=== PATIENT | male | born 1975 | race African-American/Black ===

== ENCOUNTER 2016-12-27 14:14 | Inpatient (IN) | payer OTHER ==
[~2016-12-27] VITALS: Ht 152.4 cm; Wt 121.2 kg
--- NOTE | ~2016-12-27 | DS ---
Discharge Summary [facility] [address] [place]. [address] NAME: VIKAS CASTRO : 73 STATUS : DIS IN PAT#: [id number] AGE: 41 ADM/REG DATE : 12/27/16 MR#: [id number] REPORT SERV DATE: 01/03/17 DICTATED BY: DATE: REPORT STATUS : Draft TRANSCRIBED BY: MODL DATE: 01/02/17 ADMISSION DATE: 12/27/2016 DISCHARGE DATE: 01/02/2017 PRINCIPAL DIAGNOSES: 1. 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 2. Coronary artery disease. 3. Hypertension. 4. Chronic kidney disease, stage 3. 5. Hyperlipidemia. 6. Morbid obesity. HOSPITAL COURSE: Please see H and P dictated by Dr. Olvera on 12/27/2016 and my note on 12/28/2016 for complete details. Briefly, Mr. Castro is a delightful 41-year-old male with a prior history of coronary artery disease, status post stenting to an unknown vessel who presents and was subsequently found to have an NSTEMI. He was managed as such and taken to the labelling machine operator where no additional coronary lesions were discovered. However, a ventriculogram revealed a change in his ejection fraction, and an echocardiogram recently performed just after the catheterization revealed a severely reduced ejection fraction of approximately 25%. The etiology of his heart failure is likely a mixed. He does have coronary disease, though there is a question as to whether or not the stent could be seen on catheterization (I wonder whether this is due to his body habitus), but it also is the case that he is overweight and may have obstructive sleep apnea, which may be contributing. If anything, it does seem like he has a severely reduced ejection fraction that is out of proportion to his single-vessel disease as far as we can tell. Therefore, I am classifying him as a mixed etiology. He has known CKD and diuresed nicely on Lasix. He had a slight creatinine bump, which caused us to hold his diuretic for a day and allow him to recalibrate. We were able to get him on goal-directed medical therapy of a beta timo as well as an MARIANGEL inhibitor prior to discharge. I plan on initiating spironolactone at followup. For a diuretic strategy, I am sending the patient a note on furosemide 20 mg. He is a very savvy individual, and he knows that if his weights are gaining, he may need to double up on his dose. I instructed him to call if he feels like his shortness of breath is getting worse, and we will hopefully be able to tackle things on an outpatient basis. He received extensive education as to following a low-cholesterol, low-sodium diet and also to limit his water intake, which was voluminous prior to his half graft diagnosis. I plan to follow him up in four weeks, at which point, we will initiate spironolactone. Following being on goal-directed medical therapy for three months, I would repeat an echocardiogram and determine whether or not he might need an ICD. DISCHARGE PHYSICAL EXAMINATION: VITAL SIGNS: 135/85, heart rate 75 to 103, respirations 18, Discharge Summary [address] [address] NAME: VIKAS CASTRO : 73 STATUS : DIS IN PAT#: [id number] AGE: 41 ADM/REG DATE : 12/27/16 MR#: [id number] REPORT SERV DATE: 01/03/17 DICTATED BY: DATE: REPORT STATUS : Draft TRANSCRIBED BY: MODL DATE: 01/02/17 and he is afebrile. GENERAL: He is a pleasant male in no acute distress. HEENT: Normocephalic, atraumatic. EOMI. Mucous membranes are moist. LUNGS: Clear to auscultation bilaterally. NECK: JVP beneath the clavicle at 90 degrees. CARDIOVASCULAR: Regular rate and rhythm. No murmurs, rubs, or gallops. ABDOMEN: Obese, soft, nontender, nondistended. EXTREMITIES: No clubbing, cyanosis, or edema. NEUROLOGIC: Alert and oriented x4. Cranial nerves 2 through 12 are grossly intact. LAB DATA: Potassium is 3.9, creatinine is 1.5, GFR 67. BNP 283. DISCHARGE MEDICATIONS: 1. Aspirin 81 p.o. daily. 2. Atorvastatin 40 mg p.o. at bedtime. 3. Carvedilol 12.5 mg p.o. b.i.d. 4. Furosemide 20 mg p.o. daily. 5. Lisinopril 5 mg p.o. daily. EPL/MODL Isaias Vinh Thomas IV, MD / [id number] CC: Jose Olvera M.D.
--- NOTE | ~2016-12-27 | HP ---
History And Physical [address] [place]. [address] NAME: VIKAS CASTRO : 73 STATUS : ADM Ben PAT#: [id number] AGE: 41 ADM/REG DATE : 12/27/16 MR#: [id number] REPORT SERV DATE: 12/28/16 DICTATED BY: DATE: REPORT STATUS : Draft TRANSCRIBED BY: MODL DATE: 12/28/16 DATE OF ADMISSION: 12/27/2016 CHIEF COMPLAINT: Shortness of breath x3 days. HISTORY OF PRESENT ILLNESS: Mr. Vikas Castro is a 41-year-old male with a medical history notable for coronary artery disease status post PCI of an unknown vessel approximately 16 months ago, off Brilinta for the past four months, who also has a prior history of tobacco use as well as intentional weight loss of approximately 40 pounds and a recent diagnosis of pneumonia treated with antibiotics, who presents with progressive and worsening shortness of breath over the past three days. As noted above, he does have this history of coronary artery disease, which prompted him to present to a [facility] [place] about a year and four months ago. He had shortness of breath as his predominant symptom at that time, but also had chest pain. He received a PCI, was put on dual antiplatelet therapy and discontinued the Ticagrelor four months ago. About a month ago, the patient presented to a hospital and was diagnosed with fluid overload as well as pneumonia. He presented secondary to shortness of breath, and he thinks that the water pills did more benefit for him than the antibiotics he received. However, he states to me that his shortness of breath did not really entirely alleviate. However, the shortness of breath has really gotten worse over the past three days. He notes that his shortness of breath is improved when he is standing up or when he is active. It is okay when he is sitting upright at 90 degrees, and gets worse when he is laying down or at night. The shortness of breath has really compromised his sleep over the past three days, and he says he has not slept much at all. He says that he is using three pillows. However, he notes that he has been compliant with his fluid pills, and notes that he has no lower extremity edema. He does not weigh himself daily. He is not waking up in the middle of the night gasping for air, simply because he feels he is not sleeping at all. He does note a slightly frothy sputum when he does cough. 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 At night, his symptoms of shortness of breath got worse. He is denying any chest pain, chest pressure, radiation of the jaw, back, shoulders or arms, lightheadedness, or presyncope. The patient therefore presented to our emergency department last night. He had an elevated troponin to 1.55. He was administered IV Lasix and was admitted to the CDU for further care. PAST MEDICAL HISTORY: 1. Coronary artery disease status post stenting in 2016 of an unknown vessel. 2. Hypertension. 3. Hyperlipidemia. 4. Chronic kidney disease, stage 3. 5. Intentional weight loss following IN. 6. Former tobacco abuse, quit after IN. History And Physical [address] [address] NAME: VIKAS CASTRO : 73 STATUS : ADM Ben PAT#: [id number] AGE: 41 ADM/REG DATE : 12/27/16 MR#: [id number] REPORT SERV DATE: 12/28/16 DICTATED BY: DATE: REPORT STATUS : Draft TRANSCRIBED BY: ADY DATE: 12/28/16 7. Morbid obesity. PAST SURGICAL HISTORY: None. FAMILY HISTORY: The patient has a strong history of early coronary artery disease on his father's side. His mother and his mother's side have a large history of hypertension. SOCIAL HISTORY: The patient is , and works as a customer service TV artist representative. 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 Parker Hidalgo was actually his college roommate. He used to smoke, does not drink any alcohol and rarely partakes in a marijuana cigarette. ALLERGIES: NO KNOWN DRUG ALLERGIES. HOME MEDICATIONS: 1. Aspirin 325 mg p.o. daily. 2. Furosemide 20 mg p.o. daily. REVIEW OF SYSTEMS: A 10-point review of systems was conducted and is contained in HPI. In addition to that mentioned above, he has been endorsing palpitations. He has not endorsed any weight gain. He has not had any cold or phlegm symptoms suggestive of a recurrent pneumonia. PHYSICAL EXAMINATION: VITAL SIGNS: Currently temperature of 97.6, pulse of 86, blood pressure 165/103, and saturating 97% on room air. He weighs 124 kg for a BMI of 54. GENERAL: Mr. Castro is a delightful male appearing stated age. He is in no acute distress, and he is sitting upright at 45 degrees. HEENT: Normocephalic and atraumatic. EOMI. Mucous membranes are moist. NECK: Supple, thick without thyromegaly or elevated JVP. LUNGS: Clear to auscultation anteriorly and posteriorly bilaterally. CARDIOVASCULAR: The patient is in regular rate and rhythm. No murmurs, rubs, or gallops were appreciated. ABDOMEN: Obese, soft, nontender, and nondistended. There are positive bowel sounds. EXTREMITIES: No clubbing, cyanosis, or edema is appreciated. NEUROLOGIC: The patient is alert and oriented x4. Cranial nerves 2 through 12 are grossly intact. LAB DATA: Hemoglobin 13, white count 8, and platelets 227. An INR is 1.1 and a PTT is 60. Chemistry: Sodium 141, potassium 3.5, chloride 108, bicarb 25, BUN 17, creatinine 1.4. GFR 61, glucose is 131. Cholesterol: Total cholesterol 259, HDL 35, LDL 157, non-HDL 224, and triglycerides 337. Troponin I 1.36. BNP 283.7. History And Physical [address] [address] NAME: VIKAS CASTRO : 73 STATUS : ADM Ben PAT#: [id number] AGE: 41 ADM/REG DATE : 12/27/16 MR#: [id number] REPORT SERV DATE: 12/28/16 DICTATED BY: DATE: REPORT STATUS : Draft TRANSCRIBED BY: MODL DATE: 12/28/16 IMAGING: Chest x-ray revealed mild pulmonary edema bilaterally. EKG: Normal sinus rhythm, borderline tachycardia, left atrial enlargement, and a QTc which is 536, owing to a relatively fast heart rate. QT interval 420. ASSESSMENT AND PLAN: Mr. Vikas Castro is a 41-year-old gentleman who is being admitted with acute coronary syndrome and a non-ST segment elevation myocardial infarction. He has a history of coronary artery disease and a small myocardial infarction in the past, and I suspect that his anginal equivalent is shortness of breath. I would like to get him to a left heart catheterization with possible percutaneous coronary intervention today, and we will prepare him for that by giving him gentle IV hydration. I recognized that he has mild pulmonary edema on chest x-ray, but his exam does not seem particularly worrisome to me for volume overload. I will get an echo before we cath him today to exclude any phenomenal amounts of congestive heart failure or mitral regurgitation that would be causing pulmonary edema, though I do not suspect this to be the issue. He needs aggressive secondary prevention. We will put him on atorvastatin 40 mg as well as a daily aspirin. He will be started on a beta timo, and if he gets through the procedure today reasonably well, I think with his hypertension, he would benefit from either a calcium channel timo or thiazide type diuretic as he is an , or if he does have diabetes (we will check an A1c) possibly an MARIANGEL inhibitor. The data are a little conflicted on this. He says he is having poor sleep and has had some weight loss. I do not think his thyroid is issue, but we will check a TSH and T4 in addition to the A1c. I will continue to encourage him and his weight loss efforts. I already congratulated him on his smoking cessation. EPL/MODL Isaias Thomas IV, MD / [id number] CC: Isaias Thomas IV, MD
--- NOTE | ~2016-12-27 | HP ---
History And Physical [id number] [place]. [address] NAME: VIKAS CASTRO : 73 STATUS : ADM Ben PAT#: [id number] AGE: 41 ADM/REG DATE : 12/27/16 MR#: [id number] REPORT SERV DATE: 12/28/16 DICTATED BY: JOSE OLVERA DATE: 12/27/16 REPORT STATUS : Draft TRANSCRIBED BY: MODL DATE: 12/27/16 DATE OF ADMISSION: 12/27/2016 Mr. Vikas Castro is a 41-year-old male, who enters through the emergency room with congestive heart failure and history of coronary disease. PRIMARY CARE PHYSICIAN: Does not have one. TREATING PLANT OPERATOR: Unsure who did his original evaluation. He does not see anybody on a regular basis. HISTORY OF PRESENT ILLNESS: About 3 weeks ago, he developed some dyspnea, PND, and productive cough. At that time, was diagnosed with pneumonia and put on antibiotics. He remained short of breath however, with significant PND and came to the emergency room tonight for further evaluation. REVIEW OF SYSTEMS: No further chest pain or chest discomfort. No palpitations, syncope, or presyncope. No rash or change in bowel habits are noted. 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 He stopped smoking after a stent. He does not drink. FAMILY HISTORY: Positive for early heart disease. PHYSICAL EXAMINATION: VITAL SIGNS: Blood pressure 179/104, pulse is 103, he is afebrile, mildly tachypneic. GENERAL: Resting comfortably, nutritional status appears adequate. EYES: PERRLA. LUNGS: No labored use of accessory muscles. Without rales or wheezes. COR: PMI is not displaced. No thrills or heaves. NL S1 and S2. No S3, murmur, click or rub. PULSES: Carotids without bruits. ABD: +BS, nontender. EXT: No cyanosis, clubbing or edema. SKIN: No petechiae. NEURO: Alert and oriented. Does not appear anxious or depressed. LABORATORY EVALUATION: Creatinine is 1.4. Troponin is elevated 1.6. EKG shows no acute changes with poor R-wave progression. ASSESSMENT: 1. Status post myocardial infarction, currently with positive enzymes. I will begin a standard medical treatment for coronary artery disease. 2. Left ventricular dysfunction. Check echocardiogram here in the morning for History And Physical [address] [address] NAME: VIKAS CASTRO : 73 STATUS : ADM Ben PAT#: [id number] AGE: 41 ADM/REG DATE : 12/27/16 MR#: [id number] REPORT SERV DATE: 12/28/16 DICTATED BY: JOSE OLVERA DATE: 12/27/16 REPORT STATUS : Draft TRANSCRIBED BY: ADY DATE: 12/27/16 quantification but will begin standard medical therapy and begin diuresis. 3. Renal insufficiency. At this time, we will hold on the MARIANGEL inhibitor. DONATO/ADY Jose Olvera M.D. / [id number] CC: Jose Olvera M.D.
[2016-12-27 15:23] LABS: BASOPHILS 0.5 %; BASOPHILS ABSOLUTE 0.03 10/3/uL (0.0-0.16); EOSINOPHILS 3.4 %; EOSINOPHILS ABSOLUTE 0.22 10/3/uL (0.0-0.53); ER CBC TAT 0 Hrs 07 Mins; HEMATOCRIT 40.4 % (40.0-51.0); HEMOGLOBIN 13.7 g/dL (13.6-17.8); IMMATURE GRANULOCYTES 0.2 %; IMMATURE GRANULOCYTES ABSOLUTE 0.01 10/3/uL (0.0-0.11); LYMPHOCYTES 30.3 %; LYMPHOCYTES ABSOLUTE 1.95 10/3/uL (0.67-4.30); MEAN CORPUS HGB CONC 33.9 g/dL (32.0-36.0); MEAN CORPUSCULAR HEMOGLOB 32.5 pg (26.0-34.0); MEAN PLATELET VOLUME 11.4 fL (9.2-13.0); MONOCYTES 5.7 %; MONOCYTES ABSOLUTE 0.37 10/3/uL (0.21-1.20); NEUTROPHILS 59.9 %; NEUTROPHILS ABSOLUTE 3.86 10/3/uL (2.02-8.40); PLATELET COUNT 243 10/3/uL (150-400); RED CELL COUNT 4.21 10/6/uL (4.7-6.1); WHITE BLOOD CELLS 6.4 10/3/uL (4.5-10.5)
[2016-12-27 15:24] LABS: MANUAL DIFF NO %
[2016-12-27 15:30] LABS: INTERNATIONAL NORMAL RATI 1.1 UNITS (-); PARTIAL THROMBO TIME 27.5 SEC (22.5-37.2); PROTIME (NOT ORD) 13.8 SEC (12.0-14.5)
[2016-12-27 15:42] LABS: BUN (BLOOD UREA NITROGEN) 16 MG/DL (6-23); CALCIUM, SERUM 8.7 MG/DL (8.5-10.4); CHLORIDE, SERUM 107 MMOL/L (96-112); CO2 (CARBON DIOXIDE) 28 MMOL/L (24-34); CREATININE 1.37 MG/DL (0.70-1.30); GFR AFRICAN AMERICAN 73 ML/MIN (>=60); GFR NON AFRICAN AMERICAN 63 ML/MIN (>=60); GLUCOSE, SERUM 113 MG/DL (60-99); POTASSIUM, SERUM 3.6 MMOL/L (3.5-5.3); SODIUM, SERUM 141 MMOL/L (135-148)
[2016-12-27 15:50] LABS: TROPONIN I 1.55 NG/ML (<0.05)
[2016-12-27 15:51] LABS: CHEST PAIN PROFILE TAT 0 Hrs 34 Mins
[2016-12-27] MEDS ORDERED: ASAEC PO (16:40)
[2016-12-27] MEDS ORDERED: L20 PO (16:40)
[2016-12-28 04:50] LABS: BASOPHILS 0.6 %; BASOPHILS ABSOLUTE 0.05 10/3/uL (0.0-0.16); EOSINOPHILS 3.3 %; EOSINOPHILS ABSOLUTE 0.26 10/3/uL (0.0-0.53); HEMATOCRIT 37.6 % (40.0-51.0); HEMOGLOBIN 12.9 g/dL (13.6-17.8); IMMATURE GRANULOCYTES 0.4 %; IMMATURE GRANULOCYTES ABSOLUTE 0.03 10/3/uL (0.0-0.11); LYMPHOCYTES 34.3 %; LYMPHOCYTES ABSOLUTE 2.71 10/3/uL (0.67-4.30); MEAN CORPUS HGB CONC 34.3 g/dL (32.0-36.0); MEAN CORPUSCULAR HEMOGLOB 32.4 pg (26.0-34.0); MEAN CORPUSCULAR VOLUME 94.5 fL (80-100); MEAN PLATELET VOLUME 11.4 fL (9.2-13.0); MONOCYTES 5.6 %; MONOCYTES ABSOLUTE 0.44 10/3/uL (0.21-1.20); NEUTROPHILS 55.8 %; PLATELET COUNT 227 10/3/uL (150-400); RED CELL COUNT 3.98 10/6/uL (4.7-6.1); WHITE BLOOD CELLS 7.9 10/3/uL (4.5-10.5)
[2016-12-28 04:52] LABS: MANUAL DIFF NO %
[2016-12-28 05:06] LABS: BUN (BLOOD UREA NITROGEN) 17 MG/DL (6-23); CALCIUM, SERUM 8.5 MG/DL (8.5-10.4); CHLORIDE, SERUM 108 MMOL/L (96-112); CHOL/HDL RATIO(NOT ORDER) 7.4 (0-5); CHOLESTEROL 259 MG/DL (< 200); CO2 (CARBON DIOXIDE) 25 MMOL/L (24-34); CREATININE 1.41 MG/DL (0.70-1.30); GFR AFRICAN AMERICAN 71 ML/MIN (>=60); GFR NON AFRICAN AMERICAN 61 ML/MIN (>=60); GLUCOSE, SERUM 131 MG/DL (60-99); HDL CHOLESTEROL 35 MG/DL (> 39); LDL CHOLESTEROL 157 MG/DL (< 130); NON-HDL CHOLESTEROL 224 MG/DL (< 160); POTASSIUM, SERUM 3.5 MMOL/L (3.5-5.3); SGPT(ALT) 48 U/L (5-65); SODIUM, SERUM 141 MMOL/L (135-148); TRIGLYCERIDE 337 MG/DL (< 150)
[2016-12-28 09:22] LABS: T4 (THYROXINE) TOTAL 8.3 MCG/DL (4.5-12.0)
[2016-12-29 04:39] LABS: BASOPHILS 0.5 %; BASOPHILS ABSOLUTE 0.03 10/3/uL (0.0-0.16); EOSINOPHILS 2.9 %; EOSINOPHILS ABSOLUTE 0.19 10/3/uL (0.0-0.53); HEMATOCRIT 38.1 % (40.0-51.0); HEMOGLOBIN 12.8 g/dL (13.6-17.8); IMMATURE GRANULOCYTES 0.2 %; IMMATURE GRANULOCYTES ABSOLUTE 0.01 10/3/uL (0.0-0.11); LYMPHOCYTES 26.2 %; LYMPHOCYTES ABSOLUTE 1.73 10/3/uL (0.67-4.30); MANUAL DIFF NO %; MEAN CORPUS HGB CONC 33.6 g/dL (32.0-36.0); MEAN CORPUSCULAR HEMOGLOB 32.2 pg (26.0-34.0); MEAN CORPUSCULAR VOLUME 95.7 fL (80-100); MEAN PLATELET VOLUME 11.2 fL (9.2-13.0); MONOCYTES 5.2 %; MONOCYTES ABSOLUTE 0.34 10/3/uL (0.21-1.20); PLATELET COUNT 211 10/3/uL (150-400); RED CELL COUNT 3.98 10/6/uL (4.7-6.1); WHITE BLOOD CELLS 6.6 10/3/uL (4.5-10.5)
[2016-12-29 04:53] LABS: BUN (BLOOD UREA NITROGEN) 17 MG/DL (6-23); CALCIUM, SERUM 8.5 MG/DL (8.5-10.4); CHLORIDE, SERUM 108 MMOL/L (96-112); CO2 (CARBON DIOXIDE) 25 MMOL/L (24-34); GFR AFRICAN AMERICAN 86 ML/MIN (>=60); GFR NON AFRICAN AMERICAN 74 ML/MIN (>=60); GLUCOSE, SERUM 128 MG/DL (60-99); POTASSIUM, SERUM 3.9 MMOL/L (3.5-5.3); SODIUM, SERUM 141 MMOL/L (135-148)
[2016-12-30 06:47] LABS: BUN (BLOOD UREA NITROGEN) 19 MG/DL (6-23); CALCIUM, SERUM 8.6 MG/DL (8.5-10.4); CHLORIDE, SERUM 106 MMOL/L (96-112); CO2 (CARBON DIOXIDE) 26 MMOL/L (24-34); CREATININE 1.32 MG/DL (0.70-1.30); GFR AFRICAN AMERICAN 77 ML/MIN (>=60); GFR NON AFRICAN AMERICAN 66 ML/MIN (>=60); GLUCOSE, SERUM 103 MG/DL (60-99); POTASSIUM, SERUM 3.6 MMOL/L (3.5-5.3); SODIUM, SERUM 140 MMOL/L (135-148)
[2016-12-31 06:19] LABS: CALCIUM, SERUM 8.9 MG/DL (8.5-10.4); CHLORIDE, SERUM 103 MMOL/L (96-112); CO2 (CARBON DIOXIDE) 29 MMOL/L (24-34); CREATININE 1.66 MG/DL (0.70-1.30); GFR AFRICAN AMERICAN 58 ML/MIN (>=60); GFR NON AFRICAN AMERICAN 50 ML/MIN (>=60); SODIUM, SERUM 137 MMOL/L (135-148)
[2016-12-31 06:22] LABS: BUN (BLOOD UREA NITROGEN) 25 MG/DL (6-23); GLUCOSE, SERUM 127 MG/DL (60-99)
[2016-12-31 17:22] LABS: ASCORBIC ACID (UR NOT ORDER) 20 (NEG); BILIRUBIN, URINE NEGATIVE (NEG); KETONE, URINE NEGATIVE (NEG); LEUKOCYTE ESTERASE(NOT OR NEG (NEG); WBC (NOT ORDERED) (RFLEX) 1 (0-5)
[2016-12-31 18:18] LABS: UREA NITROGEN (RANDOM UR) 1379 MG/DL
[2016-12-31 18:56] LABS: SODIUM, URINE 10 MEQ/L
[2017-01-01 05:19] LABS: CALCIUM, SERUM 8.4 MG/DL (8.5-10.4); CHLORIDE, SERUM 104 MMOL/L (96-112); CO2 (CARBON DIOXIDE) 27 MMOL/L (24-34); CREATININE 1.44 MG/DL (0.70-1.30); GFR AFRICAN AMERICAN 69 ML/MIN (>=60); GFR NON AFRICAN AMERICAN 59 ML/MIN (>=60); GLUCOSE, SERUM 109 MG/DL (60-99); SODIUM, SERUM 139 MMOL/L (135-148)
[2017-01-01 05:22] LABS: BUN (BLOOD UREA NITROGEN) 19 MG/DL (6-23); POTASSIUM, SERUM 3.9 MMOL/L (3.5-5.3)
[2017-01-02 05:17] LABS: BUN (BLOOD UREA NITROGEN) 21 MG/DL (6-23); CALCIUM, SERUM 8.6 MG/DL (8.5-10.4); CHLORIDE, SERUM 107 MMOL/L (96-112); CO2 (CARBON DIOXIDE) 26 MMOL/L (24-34); CREATININE 1.48 MG/DL (0.70-1.30); GFR AFRICAN AMERICAN 67 ML/MIN (>=60); GFR NON AFRICAN AMERICAN 58 ML/MIN (>=60); GLUCOSE, SERUM 108 MG/DL (60-99); POTASSIUM, SERUM 3.9 MMOL/L (3.5-5.3); SODIUM, SERUM 141 MMOL/L (135-148)
[2017-01-02] MEDS ORDERED: ASAB PO (10:49)
[2017-01-02] MEDS ORDERED: LIPITOR40 PO ×2 (10:49→10:51)
[2017-01-02] MEDS ORDERED: PRIN5 PO (10:50)
[2017-01-02] MEDS ORDERED: COREG12 PO (10:50)
== END 2017-01-02 14:50 | disposition home or self-care (01) | DRG 280 ==
LOC: ENRESERVTM → ENRESERVDT → ENRESERV → ER 14:14 → 6NO 18:00 → ENPENDDIS 18:00 → CDU1 18:00 → 6NO 12-29 16:15
PROVIDERS: Emergency Medicine; Internal Medicine Cardiovascular Disease
PROC: 4A023N7 Measurement of Cardiac Sampling and Pressure, Left Heart, Percutaneous Approach (ICD-10-PCS; principal; 2016-12-28)
PROC: B2111ZZ Fluoroscopy of Multiple Coronary Arteries using Low Osmolar Contrast (ICD-10-PCS; 2016-12-28)
PROC: B2151ZZ Fluoroscopy of Left Heart using Low Osmolar Contrast (ICD-10-PCS; 2016-12-28)
DX: I13.0 Hypertensive heart and chronic kidney disease with heart failure and stage 1 through stage 4 chronic kidney disease, or unspecified chronic kidney disease (principal); I21.4 Non-ST elevation (NSTEMI) myocardial infarction; I50.43 Acute on chronic combined systolic (congestive) and diastolic (congestive) heart failure; N18.3 Chronic kidney disease, stage 3 (moderate); Z68.41 Body mass index [BMI] 40.0-44.9, adult; E66.01 Morbid (severe) obesity due to excess calories; I25.10 Atherosclerotic heart disease of native coronary artery without angina pectoris; I25.2 Old myocardial infarction; E78.00 Pure hypercholesterolemia, unspecified; E78.5 Hyperlipidemia, unspecified; I34.0 Nonrheumatic mitral (valve) insufficiency; Z87.891 Personal history of nicotine dependence; Z82.49 Family history of ischemic heart disease and other diseases of the circulatory system; Z95.5 Presence of coronary angioplasty implant and graft; Z87.01 Personal history of pneumonia (recurrent); Z79.82 Long term (current) use of aspirin
CPT/HCPCS: 71010; 71020; 71275; 74176; 76775; 80048; 80061; 81001; 82962; 83036; 83735; 83880; 84155; 84300; 84436; 84443; 84460; 84484; 84540; 85025; 85610; 85730; 87493; 87493-59; 93005; 93458; 96365; 97161-GP; 97165-GO; 99152; 99285; A9270-GY; C1769; C1894; C8929; G8978-CH-GP; G8979-CH-GP; J2250; J2405; J3010; Q9957; Q9967